=== PATIENT | female | born 2005 | race Caucasian/White ===

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

== ENCOUNTER → 2024-06-16 | Outpatient (CLI) | payer OTHER, SELFPAY ==
--- NOTE | 2024-06-16 12:23 | ECHOD_ITS ---
Reason For Study Reason For Study: SHORTNESS OF BREATH Procedure This was a 2D Doppler, Color Flow transthoracic echocardiogram. Exam performed in department. Left Ventricle Normal LV size. Left ventricular systolic function is normal. The left ventricular ejection fraction is 60 %. No regional wall motion abnormalities noted. Right Ventricle Normal RV size. Normal systolic function. Atria Normal left atrium. Normal right atrium. Mitral Valve Normal mitral valve. Tricuspid Valve Normal tricuspid valve. Aortic Valve Normal aortic valve. Trisinus/trileaflet aortic valve. Pulmonic Valve Normal pulmonic valve. Great Vessels Normal aortic root. The pulmonary artery is normal size. Pericardium/Pleural No pericardial effusion. MMode/2D Measurements & Calculations LVIDd: 4.5 cm IVSd: 0.61 cm Ao root diam: 2.3 cm LVIDs: 2.9 cm LVPWd: 0.66 cm RVDd: 3.3 cm FS: 34.5 % LAV(MOD-bp): 32.9 ml LVAd ap4: 25.3 cm2 SV(MOD-sp4): 38.6 ml LAV(MOD-bp) Indexed: 21.3 ml/m2 LVLd ap4: 8.4 cm SI(MOD-sp4): 25.0 ml/m2 LAV(MOD-sp2): 30.7 ml EDV(MOD-sp4): 66.8 ml LAV(MOD-sp4): 30.5 ml EDV(sp4-el): 64.5 ml LVAs ap4: 14.2 cm2 LVLs ap4: 6.8 cm ESV(MOD-sp4): 28.3 ml ESV(sp4-el): 25.2 ml EF(MOD-sp4): 57.7 % EF(sp4-el): 60.9 % SV(sp4-el): 39.3 ml LA A4 area: 12.8 cm2 LA dimension(2D): 2.2 cm RA A4 area: 11.7 cm2 TAPSE: 2.2 cm Time Measurements MV dec time: 0.19 sec Doppler Measurements & Calculations MV E max holland: 99.3 cm/sec Lat Peak E' [place]: 18.9 cm/sec Med Peak E' [place]: 18.6 cm/sec MV A max holland: 63.8 cm/sec E/E' lat: 5.2 E/E' med: 5.3 MV E/A: 1.6 MV V2 max: 122.9 cm/sec MV P1/2t max holland: 125.5 cm/sec Ao V2 max: 127.9 cm/sec MV max P.0 mmHg MV P1/2t: 67.5 msec Ao max P.5 mmHg MV V2 mean: 66.4 cm/sec Ao V2 mean: 90.5 cm/sec MV mean P.0 mmHg MV dec slope: 544.7 cm/sec2 Ao mean P.6 mmHg MV V2 VTI: 26.3 cm MVA(P1/2t): 3.3 cm2 Ao V2 VTI: 26.4 cm AV (velocity ratio): 0.74 LV V1 max: 92.1 cm/sec PA V2 max: 85.9 cm/sec TR max holland: 207.7 cm/sec LV V1 max P.4 mmHg TR max P.3 mmHg LV V1 mean P.8 mmHg LV V1 mean: 62.2 cm/sec LV V1 VTI: 19.6 cm ECHO/Echo Complete Interpretation Summary Normal LV size. Left ventricular systolic function is normal. The left ventricular ejection fraction is 60 %. Structurally normal valves. Ordering Physician: Traci Sheikh Referring Physician: Viktor Collins Performed By: Tereza Robledo RDCS, RVT
--- NOTE | 2024-06-16 15:02 | STRESSREP ---
Stress Test Report Exercise stress test. 19-year-old lady with a history of chest pain Stress protocol: Resting EKG demonstrates normal sinus rhythm with a rate of 80 bpm resting blood pressure is 108/70 mmHg. The patient exercised according to the regular [facility] protocol for a total duration of 10 minutes and 31 seconds attaining a maximum heart rate of 173 bpm which was 86% of maximum predicted heart rate; the maximum workload was 13.4 metabolic equivalents. At rest there were no ST or T wave changes noted to suggest ischemia and at peak exercise upsloping ST changes only were noted which did not meet the criteria for ischemia. No clinical angina was noted the test was terminated due to the target heart rate being achieved/fatigue. The peak blood pressure was 130/60 mmHg. Rate-pressure product was 21,900. Conclusion: Stress test with no EKG criteria for ischemia or arrhythmias noted at a high workload.
== END | disposition home or self-care (01) ==
LOC: CVS 12:22
PROVIDERS: PCP Pediatrics; Referring Provider Nurse Practitioner Acute Care; Visit Provider Nurse Practitioner Acute Care
DX: R06.02 Shortness of breath (principal)
CPT/HCPCS: 93017; 93306